=== PATIENT | female | born 1965 | race Caucasian/White ===

== ENCOUNTER 2017-02-11 21:33 | Inpatient (IN) | payer MEDICAID ==
[~2017-02-11] VITALS: Ht 154.9 cm; Wt 106.6 kg
[~2017-02-11 21:33] MED LIST: METOPROLOL SUC100 M1 PO; PRILOSEC20 MG PO
--- NOTE | 2017-02-11 22:02 | NUR ---
RT AT BEDSIDE FOR BREATHING TREATMENT.
--- NOTE | 2017-02-11 22:10 | NUR ---
RECEIVED 51 Y/O F PT C/O OF SOB X2 DAYS NOW. LABORED BREATHING, SYMMETRICAL CHEST EXPANSION, EXPIRATORY WHEEZES TO BUL, DIMINISHED AT THE BASES. NONPRODUCTIVE COUGH NOTED. A&O X4, FOLLOWS COMMANDS, ABLE TO MAKE NEEDS KNOWN.
--- NOTE | 2017-02-11 22:24 | NUR ---
INTERNATIONAL FIRST OFFICER AT BEDSIDE FOR XRAY.
--- NOTE | 2017-02-11 22:56 | NUR ---
TECH AT BEDSIDE FOR EKG.
--- NOTE | 2017-02-11 23:13 | NUR ---
KENNEL OPERATOR AGT BEDSIDE FOR BLOOD CULTURE DRAW.
[2017-02-11 23:31] LABS: BASOPHIL % 0.4 % (0-2); PLATELET COUNT 266 x10^3mcL (130-400)
[2017-02-11 23:36] LABS: RED CELL DISTRIBUTION WIDTH 14.7 % (11.5-14.5)
[2017-02-11 23:40] LABS: CALCIUM 9.3 mg/dL (8.5-10.1); CARBON DIOXIDE 28.8 mmol/L (21-32); CREATININE SERUM 1.1 mg/dL (0.6-1.0)
[2017-02-11 23:45] LABS: ALBUMIN 3.7 g/dL (3.4-5.0); BILIRUBIN TOTAL 0.4 mg/dL (0.20-1.00)
[2017-02-11 23:46] LABS: UA SPECIFIC GRAVITY 1.005 (1.005-1.035); microscopic required? YES; urine erythrocyte TRACE (NEGATIVE)
[2017-02-11 23:52] LABS: TOTAL PROTEIN, SERUM 8.4 g/dL (6.4-8.2)
[2017-02-12 01:03] LABS: CHOLESTEROL/HDL RATIO 4.3; MAGNESIUM 2.1 mg/dL (1.8-2.4); PHOSPHOROUS 3.3 mg/dL (2.5-4.9); T3 TOTAL 1.15 ng/mL
[2017-02-12] MEDS ORDERED: NOR10 PO (01:03)
[2017-02-12] MEDS ORDERED: LOSARTAN POTASS50 M1 PO (01:04)
[2017-02-12] MEDS ORDERED: METOPROLOL SUCC50 M2 PO (01:04)
[2017-02-12] MEDS ORDERED: GLUCOTROL10 MG PO (01:04)
[2017-02-12 01:25] LABS: FREE T4 1.29 ng/dL (0.76-1.46); FREE THYROXINE INDEX 4.2 ug/dL (1.4-4.5); T4(THYROXINE) 13.1 ug/dL (4.7-13.3)
--- NOTE | 2017-02-12 01:25 | NUR ---
PT TO 2 SOUTH VIA [employer] ACCOMPANIED BY NURSE. PT IS ALERT/ORIENTED X4. PT IS TANZANIAN SPEAKING. 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 PT STATES HAS HAD SOB, COUGH AND CP X2 DAYS. PT C/O "A LITTLE BIT OF SOB" AT THIS TIME. PT ARRIVED WITH 2 LITERS O2 VIA NC FROM THE ER WHICH REMAINS ON. PT HAS PRODUCTIVE COUGH WITH A SMALL AMOUNT OF GREEN PHLEGM. LUNGS CLEAR IN THE UPPER LOBES, DIMINISHED IN THE BASES. PT C/O INGRAM; WILL MEDICATE PER MD PRN ORDER. TELE # 3, SR. PT ASSESSED; SEE NSG FLOWSHEET.SIDE RAILS UP X2. CALL LIGHT WITHIN REACH. BED IN LOWEST POSITION AND LOCKED. PT ORIENTED TO ROOM. WILL CONTINUE TO MONITOR. SCD'S APPLIED TO BLE
--- NOTE | 2017-02-12 01:35 | NUR ---
RT IN ROOM EDUCATING PT ON THE USE OF THE INCENTIVE SPIROMETER PT IS DEMONSTRATING ITS USE.
[2017-02-12 01:42] VITALS: BP 142/88
--- NOTE | 2017-02-12 02:52 | NUR ---
ASSISTED PT TO THE RESTROOM. PT VOIDED 550 ML'S YELLOW URINE. SOB NOTED UPON EXERTION. WILL CONTINUE TO MONITOR.
[2017-02-12 02:55] LABS: AMPHETAMINE QUAL UR NONE DETECTED (NEG <=1000)
--- NOTE | 2017-02-12 05:03 | NUR ---
PT SLEPT IN SHORT INTERVALS SINCE ADMISSION. WILL CONTINUE TO MONITOR.
[2017-02-12 06:02] VITALS: BP 123/72
--- NOTE | 2017-02-12 07:30 | NUR ---
RECEIVED PATIENT SITTING UP IN BED A/O X4, BENGALI SPEAKING, NO NEURO DEFICITS NOTED. TELE # [address], DENIES CHEST PAIN. BREATHING EVEN UNLABBORED ON O2 2 L/MIN VIA NC, BREATHING EVEN UNLABBORED, DENIES SOB. PATIENT DENIES ANY PAIN. SKIN IS WARM CDI WITH IV TO RAC INTACT INFUSING NS AT 100 ML/HR FREE FROM REDNESS AND INFILTRATION. PATIENT COOPERATIVE WITH CARE. INSTRUCTED TO CALL FOR ASSISTANCE IF NEEDED. SAFETY PRECAUTIONS IN PLACE. WILL MONITOR.
--- NOTE | 2017-02-12 09:06 | NUR ---
DUE MEDS GIVEN, TOLERATED WELL. VISITOR AT BEDSIDE. ALL NEEDS ATTENDED TO. WILL MONITOR.
[2017-02-12 10:00] VITALS: BP 139/84
--- NOTE | 2017-02-12 12:10 | NUR ---
PATIENT SITTING UP IN BED NO DISTRESS NOTED. DAUGHTER AT BEDSIDE. DUE MEDS GIVEN, TOLERATED WELL. ALL NEEDS ATTENDED TO. WILL MONITOR.
[2017-02-12 14:02] VITALS: BP 104/69
--- NOTE | 2017-02-12 15:00 | NUR ---
PATIENT C/O ACHING HEADACHE 09/15, TYLENOL 650 MG PO Q6H PRN GIVEN AT THIS TIME FOR PAIN PER MD ORDER. FAMILY REMAINS AT BEDSIDE. ALL NEEDS ATTENDED TO. WILL MONITOR.
[2017-02-12 17:06] VITALS: BP 145/84
--- NOTE | 2017-02-12 17:20 | NUR ---
IV TO RAC LEAKING. NEW IV PLACED TO PATIENTS RFA, GOOD BLOOD RETURN, FLUSHED WELL WITH 10 ML NS. IVF RESUMED. IV TO RAC REMOVED, CATH INTACT. ALL NEEDS ATTENDED TO. WILL MONITOR.
--- NOTE | 2017-02-12 18:27 | NUR ---
PATIENT SITTING UP IN BED, NO DISTRESS NOTED, REMAINS IN STABLE CONDITION. IV TO RFA INTACT INFUSING IVF WELL. PATIENT ON ROOM AIR O2 SAT 99%. ALL NEEDS ATTENDED TO DURING SHIFT. SAFETY PRECAUTIONS MAINTAINED. WILL ENDORSE CARE TO ONCOMING NURSE.
--- NOTE | 2017-02-12 19:10 | NUR ---
PATIENT RECEIVED AWAKE, ALERT, AND ORIENTED X 4. NO DISTRESS NOTED. PATIENT DENIES SOB. PATIENT DENIES CHEST PAIN. IV SITE TO RIGHT FOREARM, PATENT AND INTACT. IV FLUID INFUSING PER DOCTOR'S ORDER. BED IN LOWEST POSITION. CALL LIGHT WITHIN REACH. WILL CONTINUE TO MONITOR.
[2017-02-12 21:16] VITALS: BP 118/66
--- NOTE | 2017-02-13 05:08 | NUR ---
PATIENT RESTED THROUGHOUT THE NIGHT. NO DISTRESS NOTED. MEDICATED FOR HEADACHE WITH TYLENOL PO X 1 PER DOCTOR'S PRN ORDER. ALL NEEDS MET. SAFETY AND COMFORT MEASURES MAINTAINED. BED IN LOWEST POSITION. CALL LIGHT WITHIN REACH. WILL CONTINUE TO MONITOR AND ENDORSE TO NEXT SHIFT NURSE.
[2017-02-13 05:14] VITALS: BP 135/89
[2017-02-13 06:16] LABS: MAGNESIUM 2.3 mg/dL (1.8-2.4); PHOSPHOROUS 3.7 mg/dL (2.5-4.9)
[2017-02-13 06:18] LABS: BASOPHIL % 0.1 % (0-2); PLATELET COUNT 263 x10^3mcL (130-400)
[2017-02-13 06:22] LABS: CALCIUM 9.2 mg/dL (8.5-10.1); CARBON DIOXIDE 24.5 mmol/L (21-32); CHLORIDE SERUM 106 mmol/L (98-107); CREATININE SERUM 0.9 mg/dL (0.6-1.0); GFR1 > 60 mL/min; GLUCOSE SERUM 149 mg/dL (74-106); POTASSIUM SERUM 4.1 mmol/L (3.5-5.1); SODIUM SERUM 138 mmol/L (136-145)
[2017-02-13 06:33] LABS: RED CELL DISTRIBUTION WIDTH 14.8 % (11.5-14.5)
[2017-02-13 06:34] LABS: rbc morphology (normal/abnorm) ABNORMAL (NORMAL)
--- NOTE | 2017-02-13 08:00 | NUR ---
AWAKE AND ALERT. WOLOF SPEAKING. USE OF PANAMA HAT BLOCKER FOR COMMUNICATION. [employer] PHONE IN ROOM. FAMILY AT BEDSIDE. TEMP 97.2. TELE #3 SINUS RHYTHM. RESP 18 EVEN. BREATH SOUNDS CLEAR. NO COUGH OR SOB. PULSE OX 97% RA. INCENTIVE SPIROMETER AT BEDSIDE. REVIEWED USE 10 BREATHS PER HOUR. ABD SOFT, BOWEL TONES PRESENT. LBM=9-6-17. VOIDING QS. NO EDEMA. PULSES PRESENT. SCD IN PLACE. IV PATENT RFA INFUSING NORMAL SALINE 100CC/HR. SIDE RAILS UP X2. CALL LIGHT IN REACH.
[2017-02-13 09:45] VITALS: BP 121/77
--- NOTE | 2017-02-13 11:30 | NUR ---
TNQ=[id number]. REPORTS CHECKS BLOOD SUGAR AT HOME TWICE A DAY. GRANDMOTHER WAS DIABETIC. I DONT EAT ALOT OF SUGAR. FAMILY AT BEDSIDE TO ASSIST WITH CONVERSATION. DIABETIC TEACHING COMPLETED. [facility] DIABETIC NURSE HAS GIVEN FLYER FOR DIABETIC CLASS CHADIAN MONTHLY. VERBALIZED UNDERSTANDING. UP FOR SHOWER.
--- NOTE | 2017-02-13 12:30 | NUR ---
BACK IN BED. IV FLUIDS RESUMED. READY FOR LUNCH.
--- NOTE | 2017-02-13 12:40 | NUR ---
NOTED IV INFILTRATED AT THIS TIME. ATTEMPT TO RESTART X2, UNSUCCESSFUL.
--- NOTE | 2017-02-13 13:30 | NUR ---
WILLOW RN ABLE TO INSERT IV TO LEFT HAND HOWEVER PT REPORTS IT HURTS IN THE HAND. PREFERS TO HAVE IT RESTARTED IN THE ARM. ABLE TO INSERT #20 ANGIO TO RFA. IVF RESUMED ALONG WITH IV CLEOCIN ORDERED.
[2017-02-13 15:36] VITALS: BP 123/84
--- NOTE | 2017-02-13 16:03 | NUR ---
PT REPORTS HAS COLD SORES IN MOUTH THAT STARTED THIS MORNING AND NASAL STUFFINESS. PAGE TO DR ZAIDI. UPDATED WITH PT STATUS. IG=722/84. UPDATED WITH SHORT EPISODE OF PSVT. NO OTHER EPISODE NOTED SINCE THAT TIME. DENIES CHEST DISCOMFORT, DIZZINESS OR HEADACHE. WILL CONTINUE TO MONITOR.
--- NOTE | 2017-02-13 18:30 | NUR ---
FAMILY AT BEDSIDE. NO DISTRESS NOTED. C/O LOWER LIP "COLD SORES". MED WITH ORAJEL ORDERED. CEPACOL LEIGH ADMINISTERED. IV CONTINUES PATENT. CALL LIGHT IN REACH.
--- NOTE | 2017-02-13 19:40 | NUR ---
PT SITTING UP IN CHAIR. ALERT AND AWAKE. AOX4. VERBAL IN JAPANESE WITH CLEAR SPEECH. ON ROOM AIR. NO S/S OF RESPIRATORY DISTRESS NOTED. LUNGS WITH FAINT CRACKLES. NO COUGHING NOTED AT THIS TIME. DENIES ANY SOB. ON TELE 3, NSR. DENIES ANY CHEST PAIN. ABD SOFT AND ROUND. BOWEL SOUNDS ACTIVE. SKIN WARM AND DRY. IV TO RIGHT FA PATENT AND INTACT. IV NS INFUSING WELL. NO S/S OF INFECTION. NO EDEMA NOTED. PULSES PALPABLE. DENIES ANY PAIN AT THIS TIME. NO S/S OF DISTRESS NOTED. CALL LIGHT WITHIN REACH. WILL CONTINUE TO MONITOR.
[2017-02-13 21:14] VITALS: BP 123/81
--- NOTE | 2017-02-14 00:30 | NUR ---
PT RESTING IN BED. AWAKE AND ALERT AT THIS TIME WATCHING TV. NO S/S OF RESPIRATORY DISTRESS NOTED. IV PATENT AND INFUSING WELL. NO ADVERSE REACTIONS NOTED FROM IV CLEOCIN. DENIES ANY PAIN OR DISCOMFORT AT THIS TIME. NO S/S OF DISTRESS NOTED. CALL LIGHT WITHIN REACH. WILL CONTINUE TO MONITOR.
--- NOTE | 2017-02-14 03:26 | NUR ---
PT RESTING IN BED. BREATHING EQUAL AND UNLABORED. NO S/S OF RESPIRATORY DISTRESS NOTED. IV PATENT AND INFUSING WELL. RESTING COMFORTABLY WITH RELAXED FACIAL FEATURES. CALL LIGHT WITHIN REACH. WILL CONTINUE TO MONITOR.
--- NOTE | 2017-02-14 05:47 | NUR ---
PT SLEPT WELL THROUGH THE NIGHT. EASILY AROUSED WHEN NAME CALLED. VERBAL WITH CLEAR SPEECH. NO S/S OF RESPIRATORY DISTRESS NOTED. DENIES ANY PAIN AT THIS TIME. IV PATENT AND INFUSING WELL. NO S/S OF DISTRESS NOTED. CALL LIGHT WITHIN REACH. WILL CONTINUE TO MONITOR.
[2017-02-14 05:58] VITALS: BP 134/82
--- NOTE | 2017-02-14 06:00 | NUR ---
NOTED PT'S PHOS LEVEL LOW 2.2. DR. GODDARD NOTIFIED AND AWARE.
[2017-02-14 06:03] LABS: BASOPHIL % 0.4 % (0-2); PLATELET COUNT 265 x10^3mcL (130-400)
[2017-02-14 06:13] LABS: CALCIUM 9.1 mg/dL (8.5-10.1); CARBON DIOXIDE 26.5 mmol/L (21-32); CHLORIDE SERUM 103 mmol/L (98-107); CREATININE SERUM 0.9 mg/dL (0.6-1.0); GFR1 > 60 mL/min; GLUCOSE SERUM 94 mg/dL (74-106); PHOSPHOROUS 4.4 mg/dL (2.5-4.9); POTASSIUM SERUM 4.1 mmol/L (3.5-5.1); SODIUM SERUM 139 mmol/L (136-145)
[2017-02-14 06:46] LABS: RED CELL DISTRIBUTION WIDTH 14.8 % (11.5-14.5)
[2017-02-14 06:47] LABS: rbc morphology (normal/abnorm) ABNORMAL (NORMAL)
--- NOTE | 2017-02-14 08:00 | NUR ---
AWAKE AND ALERT. TEMP 97.9. TELE #3 SINUS RHYTHM. RESP 18 EVEN. BREATH SOUNDS ASCULTATE FINE CRACKLES BILATERAL BASES. CONTINUES WITH PRODUCTIVE COUGH WITH SMALL AMOUNT OF GREENISH COLOR PHLEGM. CONTINUES WITH RT TX ORDERED. PULSE OX 96% RA. ABD SOFT, BOWEL TONES PRESENT. VOIDING QS. NO EDEMA. PULSES PRESENT. SCD IN PLACE. IV PATENT RFA INFUSING NORMAL SALINE 100CC/HR. SIDE RAILS UP X2. CALL LIGHT IN REACH.
[2017-02-14 09:04] VITALS: BP 130/78
[2017-02-14 09:24] VITALS: BP 130/78
--- NOTE | 2017-02-14 11:30 | NUR ---
CQZ=[id number]. NO RISS COVERAGE. IV CONTINUES PATENT. DENIES PAIN. AWAITING DC INSTRUCTIONS. PT REPORTS HER PHARMACY IS [facility] IN [place] [phone]. DR ZAIDI MADE AWARE.
[2017-02-14] MEDS ORDERED: ROBDML PO ×2 (13:05→16:26)
[2017-02-14] MEDS ORDERED: LEVAQUIN750 MG PO ×2 (13:12→16:26)
[2017-02-14] MEDS ORDERED: CLEOCIN HCL300 MG PO ×2 (13:12→16:26)
[2017-02-14 13:32] VITALS: BP 128/94
--- NOTE | 2017-02-14 14:30 | NUR ---
DISCHARGE INSTRUCTIONS REVIEWED WITH PT AND FAMILY. RX REVIEWED. VERBALIZED UNDERSTANDING. IV REMOVED CATH TIP INTACT.TELE REMOVED AND RETURNED TO TELE UNIT. DC TO PRIVATE CAR TO GO TO [facility] TO FIELD ADJUSTER ANTIBIOTICS.
--- NOTE | 2017-02-14 15:00 | NUR ---
PHARMACY CLOSED. DTR CALLED. DR ZAIDI TO ORDER MEDS VIA [facility] [address] [facility] [place]. FAMILY TO CAFETERIA ASSISTANT LATER TODAY.
--- NOTE | 2017-02-14 19:00 | NUR ---
SPOKE WITH DTR REGUARDING MEDICATIONS. DR ZAIDI CALLED INTO [facility] [address] IN [place]. PHARMACY NOW CLOSED. WILL REOPEN AT 1000 IN THE MORNING. WILL COMMUNITY DEVELOPMENT SPECIALIST RX AT THAT TIME.
== END 2017-02-14 14:30 | disposition home or self-care (01) | DRG 137 ==
LOC: ED 21:33 → DU 23:48
PROVIDERS: Emergency Medicine; ADMIT Family Medicine
DX: J69.0 Pneumonitis due to inhalation of food and vomit (principal); E11.51 Type 2 diabetes mellitus with diabetic peripheral angiopathy without gangrene; E87.1 Hypo-osmolality and hyponatremia; E11.65 Type 2 diabetes mellitus with hyperglycemia; J45.901 Unspecified asthma with (acute) exacerbation; E66.01 Morbid (severe) obesity due to excess calories; Z68.42 Body mass index [BMI] 45.0-49.9, adult; K21.9 Gastro-esophageal reflux disease without esophagitis; E86.0 Dehydration; I10 Essential (primary) hypertension; E78.5 Hyperlipidemia, unspecified; Z79.84 Long term (current) use of oral hypoglycemic drugs
CPT/HCPCS: 82962; 83880; 84439; J0456; J0696; J1956; J2930; J3490; J7030; J7050; J7512; J7620; Q0092

== ENCOUNTER 2017-03-02 12:47 | Emergency (ER) | payer MEDICAID ==
[~2017-03-02 12:47] MED LIST changes: +CLEOCIN HCL300 MG PO; +GLUCOTROL10 MG PO; +LEVAQUIN750 MG PO; +LOSARTAN POTASS50 M1 PO; +METOPROLOL SUCC50 M2 PO; +NOR10 PO; +ROBDML PO
[2017-03-02 15:45] VITALS: BP 113/70
== END 2017-03-02 15:45 | disposition home or self-care (01) ==
LOC: ED 12:47
DX: J45.909 Unspecified asthma, uncomplicated (principal); K21.9 Gastro-esophageal reflux disease without esophagitis; I10 Essential (primary) hypertension; E11.9 Type 2 diabetes mellitus without complications
CPT/HCPCS: J7512; J7613; J7644

== ENCOUNTER 2017-03-23 00:55 | Emergency (ER) | payer MEDICAID ==
[~2017-03-23] VITALS: Ht 154.9 cm; Wt 108.9 kg
[2017-03-23 01:40] LABS: BASOPHIL % 0.5 % (0-2); PLATELET COUNT 213 x10^3mcL (130-400)
[2017-03-23 01:41] LABS: RED CELL DISTRIBUTION WIDTH 16.6 % (11.5-14.5)
[2017-03-23 01:51] LABS: CALCIUM 9.5 mg/dL (8.5-10.1); CARBON DIOXIDE 26.3 mmol/L (21-32); CREATININE SERUM 1.1 mg/dL (0.6-1.0)
[2017-03-23 01:56] LABS: ALBUMIN 3.6 g/dL (3.4-5.0); BILIRUBIN TOTAL 0.47 mg/dL (0.20-1.00); TOTAL PROTEIN, SERUM 7.7 g/dL (6.4-8.2)
[2017-03-23 03:45] VITALS: BP 131/84
== END 2017-03-23 03:45 | disposition home or self-care (01) ==
LOC: ED 00:55
PROVIDERS: Emergency Medicine
DX: J45.901 Unspecified asthma with (acute) exacerbation (principal); K21.9 Gastro-esophageal reflux disease without esophagitis; E11.9 Type 2 diabetes mellitus without complications; Z88.5 Allergy status to narcotic agent; Z79.51 Long term (current) use of inhaled steroids
CPT/HCPCS: 83880; J1885; J2930; J7613; J7644; Q0092

== ENCOUNTER 2017-03-27 16:50 | Emergency (ER) | payer MEDICAID ==
[2017-03-27 18:59] VITALS: BP 132/84
== END 2017-03-27 18:59 | disposition home or self-care (01) ==
LOC: ED 16:50
DX: J45.901 Unspecified asthma with (acute) exacerbation (principal); I10 Essential (primary) hypertension; E11.9 Type 2 diabetes mellitus without complications; K21.9 Gastro-esophageal reflux disease without esophagitis; Z79.84 Long term (current) use of oral hypoglycemic drugs; Z88.5 Allergy status to narcotic agent
CPT/HCPCS: J1100; J7613

== ENCOUNTER 2017-04-18 14:50 | Emergency (ER) | payer MEDICAID ==
[2017-04-18 19:46] VITALS: BP 147/89
== END 2017-04-18 19:46 | disposition home or self-care (01) ==
LOC: ED 14:50
DX: J45.901 Unspecified asthma with (acute) exacerbation (principal); K21.9 Gastro-esophageal reflux disease without esophagitis; I10 Essential (primary) hypertension; E11.9 Type 2 diabetes mellitus without complications; Z88.5 Allergy status to narcotic agent
CPT/HCPCS: J7512; J7613; J7644; Q0092

== ENCOUNTER 2017-12-18 20:14 | Emergency (ER) | payer MEDICAID ==
[~2017-12-18] VITALS: Ht 157.5 cm; Wt 113.8 kg
[2017-12-18 21:51] LABS: microscopic required? NO
[2017-12-18 22:12] LABS: UA SPECIFIC GRAVITY 1.025 (1.005-1.035); urine erythrocyte NEGATIVE (NEGATIVE)
[2017-12-18 23:02] VITALS: BP 179/121
== END 2017-12-18 23:18 | disposition home or self-care (01) ==
LOC: ED 20:14
PROVIDERS: Emergency Medicine
DX: I10 Essential (primary) hypertension (principal); R51 Headache; E11.9 Type 2 diabetes mellitus without complications; J45.909 Unspecified asthma, uncomplicated
CPT/HCPCS: 82962

== ENCOUNTER 2018-07-11 16:18 | Emergency (ER) | payer MEDICAID ==
[~2018-07-11] VITALS: Ht 152.4 cm; Wt 117.5 kg
[2018-07-11 16:26] VITALS: Ht 152.4 cm; Wt 117.5 kg
[2018-07-11 20:28] VITALS: BP 155/60
== END 2018-07-11 20:29 | disposition home or self-care (01) ==
LOC: ED 16:18
DX: J45.901 Unspecified asthma with (acute) exacerbation (principal); J11.1 Influenza due to unidentified influenza virus with other respiratory manifestations; E66.01 Morbid (severe) obesity due to excess calories; I10 Essential (primary) hypertension; E11.9 Type 2 diabetes mellitus without complications; K21.9 Gastro-esophageal reflux disease without esophagitis; Z68.43 Body mass index [BMI] 50.0-59.9, adult; Z87.442 Personal history of urinary calculi; Z88.5 Allergy status to narcotic agent
CPT/HCPCS: J7512; J7613; J7644; Q0092

== ENCOUNTER 2018-07-16 16:07 | Emergency (ER) | payer MEDICAID ==
[~2018-07-16] VITALS: Ht 157.5 cm; Wt 115.7 kg
[2018-07-16 16:19] VITALS: Ht 157.5 cm; Wt 115.7 kg
[2018-07-16 18:49] LABS: BASOPHIL % 0.2 % (0-2); PLATELET COUNT 340 x10^3mcL (130-400)
[2018-07-16 18:51] LABS: RED CELL DISTRIBUTION WIDTH 16.4 % (11.5-14.5)
[2018-07-16 18:55] LABS: CALCIUM 9.8 mg/dL (8.5-10.1); CARBON DIOXIDE 28.9 mmol/L (21-32); CHLORIDE SERUM 103 mmol/L (98-107); GFR1 > 60 mL/min; GLUCOSE SERUM 250 mg/dL (74-106); POTASSIUM SERUM 4.5 mmol/L (3.5-5.1); SODIUM SERUM 141 mmol/L (136-145)
[2018-07-16] MEDS ORDERED: GLUCOTROL5 MG PO (18:57)
[2018-07-16 19:00] LABS: ALKALINE PHOSPHATASE 112 U/L (46-116); ALT/SGPT 50 U/L (14-59); AST/SGOT 40 U/L (15-37); BILIRUBIN TOTAL 0.29 mg/dL (0.20-1.00)
[2018-07-16 19:07] LABS: ALBUMIN 3.2 g/dL (3.4-5.0); TOTAL PROTEIN, SERUM 8.3 g/dL (6.4-8.2)
[2018-07-16 21:39] VITALS: BP 144/91
== END 2018-07-16 21:40 | disposition home or self-care (01) ==
LOC: ED 16:07
PROVIDERS: Emergency Medicine
DX: J45.901 Unspecified asthma with (acute) exacerbation (principal); I10 Essential (primary) hypertension; E11.9 Type 2 diabetes mellitus without complications; K21.9 Gastro-esophageal reflux disease without esophagitis; Z87.442 Personal history of urinary calculi; Z88.5 Allergy status to narcotic agent
CPT/HCPCS: 36415; 36600; 83880; J7620

== ENCOUNTER 2018-08-24 12:16 | Emergency (ER) | payer MEDICAID ==
[~2018-08-24] VITALS: Ht 149.9 cm; Wt 117.5 kg
[~2018-08-24 12:16] MED LIST changes: +GLUCOTROL5 MG PO
[2018-08-24 12:18] VITALS: Ht 149.9 cm; Wt 117.5 kg
[2018-08-24 12:48] LABS: BASOPHIL % 0.1 % (0-2); PLATELET COUNT 222 x10^3mcL (130-400)
[2018-08-24 12:50] LABS: CALCIUM 9.2 mg/dL (8.5-10.1); CARBON DIOXIDE 27.9 mmol/L (21-32); CHLORIDE SERUM 100 mmol/L (98-107); GFR1 > 60 mL/min; GLUCOSE SERUM 147 mg/dL (74-106); POTASSIUM SERUM 4.2 mmol/L (3.5-5.1); SODIUM SERUM 135 mmol/L (136-145)
[2018-08-24 12:53] LABS: RED CELL DISTRIBUTION WIDTH 17.6 % (11.5-14.5)
[2018-08-24 13:01] LABS: ALBUMIN 3.8 g/dL (3.4-5.0); ALKALINE PHOSPHATASE 107 U/L (46-116); ALT/SGPT 77 U/L (14-59); AST/SGOT 64 U/L (15-37); BILIRUBIN TOTAL 0.4 mg/dL (0.20-1.00)
[2018-08-24 13:03] LABS: TOTAL PROTEIN, SERUM 8.3 g/dL (6.4-8.2)
[2018-08-24 14:14] VITALS: BP 147/94
== END 2018-08-24 14:14 | disposition home or self-care (01) ==
LOC: ED 12:16
PROVIDERS: Emergency Medicine
DX: J06.9 Acute upper respiratory infection, unspecified (principal); R07.89 Other chest pain
CPT/HCPCS: 83880; J1885; Q0092